=== PATIENT | female | born 1955 | race Caucasian/White ===

== ENCOUNTER 2021-04-21 15:34 | Emergency (ER) | payer OTHER, SELFPAY ==
--- NOTE | ~2021-04-21 | US_ITS ---
EXAMINATION: US VENOUS ULTRASOUND WITH DOPPLER LOWER EXTREMITY, RIGHT CLINICAL INFORMATION: Pain COMPARISON: None TECHNIQUE: Ultrasound of the deep veins is performed from the hip to the calf with compression sonography and color and pulse Doppler assessment. Spectral analysis with color-flow imaging is performed. FINDINGS: There is normal venous compression and respiratory variation and augmented flow. The visualized common femoral vein, superficial femoral vein, profunda femoral vein, popliteal vein, and the trifurcation region shows no evidence of deep venous thrombosis. There is no significant popliteal fossa cyst. If the patient's symptoms persist, followup ultrasound in 5 days 7 days might be of value to exclude proximal propagation from a non-visualized calf vein. US/US venous duplex LE RT IMPRESSION: No DVT demonstrated in the right lower extremity.
[2021-04-21 15:39] VITALS: BP 129/76; PULSE 94; RESP 16; TEMP 36.4; O2SAT 98; BMI 31.7
--- NOTE | 2021-04-21 17:34 | ED_ITS ---
HPI - Extremity Problem General Chief complaint: Extremity Problem Stated complaint: R/O Dvt Time Seen by Provider: 04/21/21 15:42 Source: patient Limitations: no limitations History of Present Illness HPI Narrative: Patient presents to the ER complaining of numbness into the right leg. Pain from behind the ankle extending up into the right calf. No recent trauma. PCP advised to the ER for rule out DVT. Patient has a history of hypot hyroidism and reflux disease. Patient denies history of diabetes. Patient denies nausea vomiting chest pain. Patient has had no known injuries to that extremity. Pain describes the numbness and tingling feeling at times. Patient has no past history of neuropathy. Symptoms are moderate. Patient also feels tightness behind the right knee. Pain 5/10. Related Data Previous Rx's Medication Instructions Recorded methocarbamol 750 mg PO TID PRN #20 tab 04/21/21 naproxen [Naprosyn] 500 mg PO BID PRN #20 tab 04/21/21 Allergies Allergy/AdvReac Type Severity Reaction Status Date / Time latex [LATEX] Allergy Unknown UNKNOWN Unverified 06/24/20 14:40 penicillin G Allergy Unknown Verified 10/30/18 00:00 Penicillins [PENICILLINS] Allergy Unknown UNKNOWN Unverified 06/24/20 14:40 Review of Systems Constitutional: Constitutional: Denies chills and Denies fever(s) Eyes: Eyes: Denies diplopia ENT: Denies sore throat Cardiovascular: Cardiovascular: Denies chest pain and Denies dyspnea Respiratory: Respiratory: Denies cough and Denies dyspnea Gastrointestinal: Gastrointestinal: Denies diarrhea, Denies nausea and Denies vomiting Musculoskeletal: Comments: Right calf pain Right leg pain Neurologic: Denies focal weakness and Denies radicular pain Psychiatric: Psychiatric: Reports no additional psychiatric complaints Hematologic/Lymphatic: Hematologic/Lymphatic: Reports no additional hematologic/lymphatic complaints [facility] Past Medical History Attestation statement: The following information was validated with the patient. Medical History No known health problems Social History Social History Advance Directives: No Advance Directives Information Provided: Yes Physical Exam Vital Signs: Vital Signs: Last Vital Signs Temp 97.6 F 04/21/21 15:39 Pulse 94 04/21/21 15:39 Resp 16 07/15/21 15:39 BP 129/76 04/21/21 15:39 Pulse Ox 98 04/21/21 15:39 Body Mass Index 31.7 vital signs have been reviewed as normal and appeared to be correct. Blood pressure normal. Heart rate normal. Respiration rate normal. Temperature normal. Oxygen saturation normal. Appearance: Alert. Oriented X3. No acute distress. Head: Normal external exam. Normocephalic. Atraumatic. Eyes: PERRLA. EOMI. Conjunctiva and sclera normal. Eyelids normal. ENT: Pharynx normal. Uvula midline. CVS: Heart regular rate and rhythm no murmurs and rubs Respiratory: Breath sounds are clear to auscultation bilaterally. No accessory muscle use noted. Back: No CVA tenderness. Full range of motion noted. Skin: Skin warm and dry. Normal skin color. Normal skin turgor. No rashes/lesions/lacerations noted. Extremities: Right leg pedal pulses intact positive sensation. Negative straight leg raise on the right positive tenderness in the calf. No ecchymosis or bruising noted. Neuro: Oriented X 3. No motor deficit. No sensory deficit. Reflexes normal. Course Course Course Narrative: Right leg DVT Right leg neuropathy Ruptured Soto cyst Right leg strain/calf strain Duplex ultrasound of the right lower extremity Symptoms are consistent with musculoskeletal pain duplex is negative for DVT patient advised to continue to follow-up. MDM - Extremity (Nontraumatic) Imaging Data Venous US: Radiologist's impression: [address] [id number] ReportSigned Patient: Nona Moreno [facility]#: [id number]: 6Acct:[id number]/Sex: 66 / FADM Date: 04/21/21Loc: HO.EDAttending Dr: Ordering Physician: Wayne Gillespie Date of Service: 04/21/21 Procedure(s): US venous duplex LE RT Accession Number(s): [id number] cc: Wayne Gillespie ~ EXAMINATION: US VENOUS ULTRASOUND WITH DOPPLER LOWER EXTREMITY, RIGHT CLINICAL INFORMATION: Pain COMPARISON: None TECHNIQUE: Ultrasound of the deep veins is performed from the hip to the calf with compression sonography and color and pulse Doppler assessment. Spectral analysis with color-flow imaging is performed. FINDINGS: There is normal venous compression and respiratory variation and augmented flow. The visualized common femoral vein, superficial femoral vein, profunda femoral vein, popliteal vein, and the trifurcation region shows no evidence of deep venous thrombosis. There is no significant popliteal fossa cyst. If the patient's symptoms persist, followup ultrasound in 5 days 7 days might be of value to exclude proximal propagation from a non-visualized calf vein. US/US venous duplex LE RT IMPRESSION: No DVT demonstrated in the right lower extremity. Dictated By:JAMES IBARRA MDSigned By:<Electronically signed by JAMES IBARRA MD in [place]>04/21/21 1750 DD/ 1542TD/TT: Forming Department Supervisor: GT Discharge Plan Discharge Clinical Impression: Pain in right leg Patient Disposition: Home, Self-Care Instructions: Peripheral Neuropathy (ED) Additional Instructions: Rest ice elevation Ultrasounds negative for DVT or Soto cyst Prescriptions: New naproxen [Naprosyn] 500 mg tablet 500 mg PO BID PRN (Reason: pain) Qty: 20 RF: 0 methocarbamol 750 mg tablet 750 mg PO TID PRN (Reason: muscle spasm) Qty: 20 RF: 0 Referrals: Clyde Smith MD [Primary Care Provider] - 2 days
== END 2021-04-21 18:27 | disposition home or self-care (01) ==
PROVIDERS: Emergency Provider Internal Medicine; PCP Internal Medicine
DX: M79.604 Pain in right leg (principal)
CPT/HCPCS: 93971; 99283; 99284